=== PATIENT | male | born 1990 | race Caucasian/White ===

== ENCOUNTER → 2018-01-21 | Outpatient (CLI) | payer SELFPAY ==
[2018-01-21 19:10] LABS: BASOPHILS ABSOLUTE AUTO 0.05 K/mm3 (0.00-0.23); BASOPHILS PERCENT AUTO 1 % (0-2); EOSINOPHILS ABSOLUTE AUTO 0.14 K/mm3 (0.00-0.68); EOSINOPHILS PERCENT AUTO 2 % (0-6); Hematocrit 44.2 % (37.0-53.0); IMMATURE GRAN ABSOLUTE AUTO 0.02 K/mm3 (0.00-0.10); IMMATURE GRAN PERCENT AUTO 0 % (0-1); LYMPHOCYTES ABSOLUTE AUTO 2.86 K/mm3 (0.84-5.20); LYMPHOCYTES PERCENT AUTO 32 % (21-46); MONOCYTES ABSOLUTE AUTO 0.58 K/mm3 (0.16-1.47); MONOCYTES PERCENT AUTO 7 % (4-13); Mean Corpuscular HGB 29.9 pg (26.0-34.0); Mean Corpuscular HGB Conc 33.9 g/dL (31.5-36.5); Mean Corpuscular Volume 88 fL (80-100); Mean Platelet Volume 10.8 fL (9.1-12.4); NEUTROPHILS ABSOLUTE AUTO 5.19 K/mm3 (1.96-9.15); NEUTROPHILS PERCENT AUTO 59 % (41-73); Platelet Count 247 K/mm3 (150-400); RDW Coefficient Variation 12.2 % (11.7-14.2); RDW Standard Deviation 39.5 fL (35.1-46.3); Red Blood Cell Count 5.01 M/mm3 (4.30-5.90); White Blood Cell Count 8.84 K/mm3 (4.00-11.30)
[2018-01-21 19:28] LABS: Alanine Aminotransfer (ALT/SGP 34 U/L (12-78); Albumin, Blood 4.3 g/dL (3.4-5.0); Albumin/Globulin Ratio 1.1 (0.8-1.8); Alk Phos 78 U/L (50-136); Anion Gap 7 mmol/L (6-16); Aspartate Aminotrans (AST/SGOT 21 U/L (12-37); Bilirubin, Total 0.3 mg/dL (0.1-1.0); Blood Urea Nitrogen 10 mg/dL (8-24); Bun/Creatinine Ratio 13.6 (12.0-20.0); CHOL/HDL RATIO 3.8; CO2, Blood 27 mmol/L (21-32); Calcium, Blood 9.4 mg/dL (8.5-10.1); Chloride, Blood 105 mmol/L (98-108); Cholesterol 154 mg/dL (50-200); Creatinine, Blood 0.74 mg/dL (0.60-1.20); Globulin, Blood 3.9 g/dL (2.2-4.0); Glomerular Filtration Rate >60 (60-); Glucose, Blood 69 mg/dL (70-99); HDL Cholesterol 40 mg/dL (>39); LDL/HDL RATIO 2.3; Low Density Lipoprotein Chol 92 mg/dL (0-110); Potassium, Blood 3.7 mmol/L (3.5-5.5); Sodium, Blood 139 mmol/L (136-145); Total Protein, Blood 8.2 g/dL (6.4-8.2); Triglycerides 108 mg/dL (30-140); Very Low Density Lipoprot Chol 21 mg/dL (6-28)
== END ==
LOC: LAB 13:57 → LAB SHORT 13:57
PROVIDERS: Physician Assistant
DX: E66.9 Obesity, unspecified (principal)
CPT/HCPCS: 80053; 80061; 83036; 85025

== ENCOUNTER 2023-04-20 07:16 | Observation (INO) | payer OTHER ==
[~2023-04-20] VITALS: Ht 180.3 cm; Wt 108.9 kg
[2023-04-20] VITALS (18 sets, daily range): BP systolic 117–151; BP diastolic 66–103
[2023-04-20 07:36] LABS: BASOPHILS ABSOLUTE AUTO 0.05 K/mm3 (0.00-0.23); BASOPHILS PERCENT AUTO 1 % (0-2); EOSINOPHILS PERCENT AUTO 2 % (0-6); Hematocrit 45.1 % (37.0-53.0); Hemoglobin 15.8 g/dL (13.5-17.5); IMMATURE GRAN ABSOLUTE AUTO 0.02 K/mm3 (0.00-0.10); IMMATURE GRAN PERCENT AUTO 0 % (0-1); LYMPHOCYTES ABSOLUTE AUTO 1.65 K/mm3 (0.84-5.20); LYMPHOCYTES PERCENT AUTO 25 % (21-46); MONOCYTES PERCENT AUTO 9 % (4-13); Mean Corpuscular HGB 30.6 pg (26.0-34.0); Mean Corpuscular Volume 87 fL (80-100); Mean Platelet Volume 10.1 fL (9.1-12.4); NEUTROPHILS ABSOLUTE AUTO 4.18 K/mm3 (1.96-9.15); NEUTROPHILS PERCENT AUTO 63 % (41-73); Platelet Count 288 K/mm3 (150-400); RDW Coefficient Variation 12.5 % (11.7-14.2); RDW Standard Deviation 39.9 fL (35.1-46.3); Red Blood Cell Count 5.16 M/mm3 (4.30-5.90)
[2023-04-20 08:07] LABS: Albumin, Blood 4.1 g/dL (3.4-5.0); Bilirubin, Total 3.2 mg/dL (0.1-1.0); Bun/Creatinine Ratio 13.5 (12.0-20.0); Calcium, Blood 9.9 mg/dL (8.5-10.1); Creatinine, Blood 0.67 mg/dL (0.60-1.20); Globulin, Blood 4.1 g/dL (2.2-4.0); Potassium, Blood 3.9 mmol/L (3.5-5.5); Total Protein, Blood 8.2 g/dL (6.4-8.2)
[2023-04-20] MEDS ORDERED: ACET500 PO (13:56)
--- NOTE | 2023-04-20 18:50 | NUR ---
SUMMARY S/P LAP SUNIL BY DR. MENEZES TODAY, VSS, PT TOLERATED REG FOOD WELL, DENIES ANY NAUSEA, REPORTS HAVING MINIMAL PAIN, ABD W/ 4 LAP INCISIONS W/ SKIN GLUE C/D/I, DR. MENEZES IN TO SEE PT THIS EVENING, NO ACUTE CHANGES THIS SHIFT.
[2023-04-21 03:55] VITALS: BP 109/76
[2023-04-21 05:12] LABS: Albumin, Blood 3.4 g/dL (3.4-5.0); Bilirubin, Total 1.6 mg/dL (0.1-1.0); Bun/Creatinine Ratio 10.1 (12.0-20.0); Calcium, Blood 8.7 mg/dL (8.5-10.1); Creatinine, Blood 0.79 mg/dL (0.60-1.20); Globulin, Blood 3.4 g/dL (2.2-4.0); Potassium, Blood 4.8 mmol/L (3.5-5.5); Total Protein, Blood 6.8 g/dL (6.4-8.2)
--- NOTE | 2023-04-21 06:28 | NUR ---
POD 1 S/P LAP SUNIL. PT VSS T/O NIGHT. INCISIONS CDI. PAIN MGD PER EMAR W/REP RELIEF. PT TORIN REG PO, DENIED N/V, REP +FLATUS, IS VOIDING DARK DEYVI URINE. PT UP OOB W/SBA, TORIN WELL. IVF AND ABX CONT PER ORDERS.
[2023-04-21 07:15] VITALS: BP 117/67
[2023-04-21 14:45] VITALS: BP 108/65
[2023-04-21] MEDS ORDERED: HYDR1TAB94 PO (16:43)
[2023-04-21 17:00] LABS: Albumin, Blood 3.9 g/dL (3.4-5.0); Albumin/Globulin Ratio 1.1 (0.8-1.8); Bilirubin, Total 0.7 mg/dL (0.1-1.0); Bun/Creatinine Ratio 12.7 (12.0-20.0); Calcium, Blood 9.1 mg/dL (8.5-10.1); Creatinine, Blood 0.79 mg/dL (0.60-1.20); Globulin, Blood 3.5 g/dL (2.2-4.0); Total Protein, Blood 7.4 g/dL (6.4-8.2)
--- NOTE | 2023-04-21 17:36 | NUR ---
LAB RESULTS REVIEWED BY DR. MENEZES THIS AFTERNOON, PT OK'D TO DC HOME, DC INSTRUCTIONS GIVEN VERBALIZED UNDERSTANDING, PT TOLERATING REG DIET, AND REPORTS MINIMAL INCISIONAL PAIN AND HAVING ADEQUATE PAIN CONTROL W/ NORCO, AMBULATED DOWN THE HALLS X2 TODAY.
== END 2023-04-21 17:48 | disposition home or self-care (01) ==
LOC: ER 07:16 → SURS 07:17
PROVIDERS: Emergency Medicine; ADMIT Surgery
PROC: BF121ZZ Fluoroscopy of Gallbladder using Low Osmolar Contrast (ICD-10-PCS; principal; 2023-04-20 14:00)
PROC: 0FT44ZZ Resection of Gallbladder, Percutaneous Endoscopic Approach (ICD-10-PCS; principal; 2023-04-20 14:00)
DX: K80.01 Calculus of gallbladder with acute cholecystitis with obstruction (principal); Z72.0 Tobacco use
CPT/HCPCS: 36415; 74181; 74300; 76705; 80053; 83690; 85025; 88304; 94762; 96365; 96375; 96376; 99285-25; A9270; C1729; C1894; J0696; J1100; J1610; J1885; J2250; J2371; J2405; J2704; J3010; J7120